=== PATIENT | female | born 1995 | race Caucasian/White ===

== ENCOUNTER 2016-07-25 19:15 | Inpatient (IN) | payer OTHER ==
[2016-07-25] MEDS ORDERED: BUTORPHANOL TARTRATE 1 MG/ML VIAL IVPUSH PRN (20:29)
[2016-07-25] MEDS ORDERED: OXYTOCIN 15 UNITS/ LR 250 ML 250 ML IVPB SCH (20:30)
[2016-07-25] MEDS ORDERED: ELECTROLYTE-148 SOLN 1,000 ML IV SCH (20:30)
--- NOTE | 2016-07-25 20:34 | HP ---
Past Medical History - Admission Chief Complaint: in labor History of Present Illness: 20 yo , @ 39 weeks gestation, admitted for augmentation of labor. She denies any vaginal bleeding nor ROM. History Source: Patient Limitations to Obtaining History: No Limitations - Past Medical History ...: 1 ...Para: 0 - Past Surgical History Past Surgical History: Yes: None Hx Myomectomy: No Hx Transabdominal Cerclage: No - Smoking History Smoking history: Never smoked - Alcohol/Substance Use Hx Alcohol Use: No History of Substance Use: reports: None - Social History Usual Living Arrangement: Yes: With Significant Other History of Recent Travel: No Home Medications - Allergies Allergies/Adverse Reactions: Allergies Allergy/AdvReac Type Severity Reaction Status Date / Time PEANUTS Allergy Uncoded 03/17/15 19:12 - Home Medications Home Medications: Ambulatory Orders Ferrous Sulfate [Feosol] 325 mg PO AM 06/08/16 Vitamins (Sjr) - 1 tab PO DAILY 06/08/16 Family Disease History - Family Disease History Family History: Unremarkable Review of Systems - Review of Systems Constitutional: reports: No Symptoms Eyes: reports: No Symptoms HENT: reports: No Symptoms Neck: reports: No Symptoms Cardiovascular: reports: No Symptoms Respiratory: reports: No Symptoms Gastrointestinal: reports: No Symptoms Genitourinary: reports: No Symptoms Breasts: reports: No Symptoms Reported Musculoskeletal: reports: No Symptoms Integumentary: reports: No Symptoms Neurological: reports: No Symptoms Endocrine: reports: No Symptoms Hematology/Lymphatic: reports: No Symptoms Psychiatric: reports: No Symptoms Pain Intensity: 3 Physical Exam - Maternity Constitutional: Yes: Well Nourished Eyes: Yes: Conjunctiva Clear HENT: Yes: Atraumatic Neck: Yes: Supple, Trachea Midline Cardiovascular: Yes: Regular Rate and Rhythm Lungs: Clear to auscultation - Abdominal Exam/OB Number of Fetuses: Single Presentation: Vertex Contractions: Yes Regularity: Regular Intensity: Mild - Vaginal Exam/OB Vaginal Bleediing: No Dilatation (cm): 4 Effacement (%): 70 Amniotic Membrane Status: Intact Station: -2 - Physical Exam Integumentary: Yes: WNL ...Motor Strength: WNL Psychiatric: Yes: Alert, Oriented Assessment/Plan IUP @ term Admit for Pitocin augmentation Analgesia PRN Anticipate
[2016-07-25 21:13] LABS: BASOPHIL 0.3 % (0-2.0); EOSINOPHIL 0.2 % (0-4.5); MCHC 33.2 g/dl (32.0-36.0); MEAN CELL VOLUME 78.2 fl (80-96); MEAN PLT VOLUME 8.8 fl (7.5-11.1); NEUTROPHILS 80.5 % (42.8-82.8); PLATELET COUNT 243 K/MM3 (134-434); RDW 16.4 % (11.6-15.6); WHITE BLOOD COUNT 10.1 K/mm3 (4.0-10.0)
[2016-07-25 21:30] LABS: INR 0.96 (0.82-1.09); PROTHROMBIN TIME (PATIENT) 10.5 SEC (9.98-11.88)
[2016-07-25 21:32] LABS: CALCIUM 8.9 mg/dL (8.5-10.1); CREATININE 0.6 mg/dL (0.55-1.02)
[2016-07-25 21:33] LABS: ACTIVATED PTT 25.8 SECONDS (26.9-34.4)
[2016-07-26] MEDS ORDERED: FENTANYL/BUPIVACAINE/NS/PF - PCEA - 50 ML DISP.SYRIN EP SCH (03:30)
[2016-07-26] MEDS: D5W-LR W/ 20 UNITS OXYTOCIN 1,000 ML IV SCH ×2 (07:08→13:15)
[2016-07-26] MEDS ORDERED: BENZOCAINE 28 GM HEMORRHOIDAL OINTMENT TP PRN (08:47)
[2016-07-26] MEDS ORDERED: WITCH HAZEL 50% (TUCKS) 40 PAD/JAR PAD TP PRN (08:47)
[2016-07-26] MEDS ORDERED: METHYLERGONOVINE MALEATE 0.2 MG/1 ML AMP IM PRN (08:47)
[2016-07-26] MEDS ORDERED: BISACODYL 10 MG SUPP.RECT RC PRN (08:47)
[2016-07-26] MEDS ORDERED: BENZOCAINE 20% 57 GM BOTTLE TP PRN (08:47)
--- NOTE | 2016-07-26 08:51 | PN ---
Delivery - Delivery Vaginal Delivery: Spontaneous Type of Anesthesia: Epidural Episiotomy/Laceration: Midline EBL (cc): 350 Delivery, Single - Stages of Labor Date 1st Stage Initiatied: 07/25/16 Time 1st Stage Initiated: 17:00 Date 2nd Stage Initiated: 07/26/16 Time 2nd Stage Initiated: 05:30 Date of Delivery: 07/26/16 Time of Delivery: 07:06 Time Placenta Delivered: 07:08 - Condition of Date Pitter/Etl Data Architect Present: No Gender: Male Weight: 7 lb 2 oz Total Hours ROM (Hrs/Mins): 10 HOURS 8 MINUTES - 1 Minute Total Score: 8 5 Minutes Total Score: 9 Remarks - Remarks Remarks: Normal spontaneous vaginal delivery of a live infant boy over midline episiotomy. Nose / Oropharynx suctioned @ perineum. Cord clamped and cut. Placenta expelled spontaneously intact. Episiotomy repaired with 2.Chromic.
--- NOTE | 2016-07-26 08:54 | DS ---
Physical Exam-COW PUNCHER Vital Signs: Vital Signs Temperature 98.4 F 07/26/16 02:00 Pulse Rate 85 07/26/16 02:00 Respiratory Rate 20 07/26/16 02:00 Blood Pressure 137/85 07/26/16 02:00 O2 Sat by Pulse Oximetry (%) Constitutional: Yes: Well Nourished Eyes: Yes: Conjunctiva Clear HENT: Yes: Atraumatic Neck: Yes: Supple Cardiovascular: Yes: Regular Rate and Rhythm Respiratory: Yes: Regular Gastrointestinal: Yes: Normal Bowel Sounds External Genitalia: Yes: Normal Vaginal Exam: Yes: Bleeding Cervix: Yes: Normal Uterus: Yes: Normal ....Post : Yes: Uterus firm, Moderate lochia rubra Breast(s): Yes: WNL Wound/Incision: Yes: Well Approximated Neurological: Yes: Alert, Oriented ...Motor Strength: WNL Psychiatric: Yes: Alert, Oriented Labs: CBC, BMP 07/25/16 20:12 07/25/16 20:30 Delivery - Delivery Vaginal Delivery: Spontaneous Type of Anesthesia: Epidural Episiotomy/Laceration: Midline EBL (cc): 350 Delivery, Single - Stages of Labor Date 1st Stage Initiatied: 07/25/16 Time 1st Stage Initiated: 17:00 Date 2nd Stage Initiated: 07/26/16 Time 2nd Stage Initiated: 05:30 Date of Delivery: 07/26/16 Time of Delivery: 07:06 Time Placenta Delivered: 07:08 - Condition of Infant Take Off Man/Whale Fisherman Present: No Infant Gender: Male Weight: 7 lb 2 oz Total Hours ROM (Hrs/Mins): 10 HOURS 8 MINUTES - 1 Minute Total Score: 8 5 Minutes Total Score: 9 Discharge Summary Reason For Visit: LABOR Labor Pain Procedures: Principal: Spontaneous vaginal delivery Hospital Course: Routine care Condition: Good - Instructions Diet, Activity, Other Instructions: Regular diet No douching, no sexual intercourse x 6 weeks F/U with MD in 6 weeks Disposition: HOME - Home Medications Comprehensive Discharge Medication List: Ambulatory Orders Ferrous Sulfate [Feosol] 325 mg PO AM 06/08/16 Vitamins (Sjr) - 1 tab PO DAILY 06/08/16
[2016-07-26] MEDS: ACETAMINOPHEN 325 MG TABLET (FP) PO PRN ×3 (09:05→21:53)
[2016-07-26] MEDS: IBUPROFEN 600 MG TABLET (FP) PO PRN ×3 (09:05→21:54)
[2016-07-26 10:04] VITALS: BMI 30.2
[2016-07-26] MEDS ORDERED: TUBERCULIN PPD 5 TU/0.1ML SYRINGE (IN PATIENT USE ONLY) ID ONE (11:30)
[2016-07-26] MEDS: PRENATAL VITAMINS W/ FOLIC ACID TABLET (FP) PO SCH (11:43)
[2016-07-26] MEDS: FERROUS SO4 325 MG TABLET (FP) PO SCH ×2 (11:50→16:43)
[2016-07-27] MEDS: ACETAMINOPHEN 325 MG TABLET (FP) PO PRN ×3 (03:38→21:32)
[2016-07-27] MEDS: IBUPROFEN 600 MG TABLET (FP) PO PRN ×3 (03:39→21:32)
[2016-07-27 08:31] LABS: BASOPHIL 0.3 % (0-2.0); EOSINOPHIL 0.3 % (0-4.5); MCH 26.1 pg (25.7-33.7); MCHC 33.1 g/dl (32.0-36.0); MEAN CELL VOLUME 78.9 fl (80-96); MEAN PLT VOLUME 8.5 fl (7.5-11.1); NEUTROPHILS 70.7 % (42.8-82.8); PLATELET COUNT 257 K/MM3 (134-434); RDW 16.7 % (11.6-15.6); WHITE BLOOD COUNT 15.5 K/mm3 (4.0-10.0)
--- NOTE | 2016-07-27 08:35 | PN ---
Post Progress Note - Subjective Subjective: Pt seen/evaluated and doing well. Pain controlled, tolerating diet. Ambulating , voiding, passing flatus. VB moderate but decreasing. Denies Cp/SOB/F/C/CORTES. No other complaints. Type of Delivery: Vital Signs: Vital Signs Temperature 98.8 F 07/27/16 06:00 Pulse Rate 72 07/27/16 06:00 Respiratory Rate 20 07/27/16 06:00 Blood Pressure 135/76 07/27/16 06:00 O2 Sat by Pulse Oximetry (%) 100 07/26/16 08:05 Uterus: Yes: Fundus Firm Abdomen/GI: Yes: Abdomen soft, Passing flatus, Tolerating PO. No: Abdominal Distention, Tender Lochia: Yes: Rubra Lochia, amount: Moderate Extremities: Yes: Calves non-tender Perineum: Yes: Intact Activity: Ambulating - Labs Labs: CBC WBC 15.5 K/mm3 (4.0-10.0) H D 07/27/16 08:00 RBC 3.75 M/mm3 (3.60-5.2) 07/27/16 08:00 Hgb 9.8 GM/dL (10.7-15.3) L 07/27/16 08:00 Hct 29.6 % (32.4-45.2) L 07/27/16 08:00 MCV 78.9 fl (80-96) L 07/27/16 08:00 MCHC 33.1 g/dl (32.0-36.0) 07/27/16 08:00 RDW 16.7 % (11.6-15.6) H 07/27/16 08:00 Plt Count 257 K/MM3 (134-434) 07/27/16 08:00 MPV 8.5 fl (7.5-11.1) 07/27/16 08:00 Neutrophils % 70.7 % (42.8-82.8) 07/27/16 08:00 Lymphocytes % 23.4 % (8-40) D 07/27/16 08:00 Monocytes % 5.3 % (3.8-10.2) 07/27/16 08:00 Eosinophils % 0.3 % (0-4.5) 07/27/16 08:00 Basophils % 0.3 % (0-2.0) 07/27/16 08:00 Problem List - Problems (1) Vaginal delivery Code(s): O80 - ENCOUNTER FOR FULL-TERM UNCOMPLICATED DELIVERY (2) Anemia Code(s): D64.9 - ANEMIA, UNSPECIFIED Assessment/Plan 20 y/o PPD#1 s/p normal - AFVSS - Hgb 9.7 post delivery, stable, continue vitamins - regular diet, PO pain meds, ambulation - routine care
[2016-07-27] MEDS: PRENATAL VITAMINS W/ FOLIC ACID TABLET (FP) PO SCH (10:26)
[2016-07-27] MEDS: FERROUS SO4 325 MG TABLET (FP) PO SCH ×3 (10:26→17:16)
[2016-07-27] MEDS ORDERED: DIPHTH,PERTUSS(ACELL),TET 0.5 ML DISP.SYRIN IM ONE (15:00)
[2016-07-27] MEDS ORDERED: SENNOSIDES/DOCUSATE COMBO (SENNA PLUS) TABLET (UD) PO PRN (22:00)
[2016-07-28] MEDS: ACETAMINOPHEN 325 MG TABLET (FP) PO PRN (06:09)
[2016-07-28] MEDS: IBUPROFEN 600 MG TABLET (FP) PO PRN (06:10)
[2016-07-28] MEDS: FERROUS SO4 325 MG TABLET (FP) PO SCH (08:21)
[2016-07-28 10:22] VITALS: BP 126/85; PULSE 81; TEMP 98.1
[2016-07-28] MEDS: PRENATAL VITAMINS W/ FOLIC ACID TABLET (FP) PO SCH (10:43)
== END 2016-07-28 11:50 | disposition home or self-care (01) | DRG 560 ==
LOC: JDEL 19:15 → JLDR 19:35 → J3W 07-26 14:28
PROVIDERS: ADMIT Obstetrics & Gynecology; ATTEND Obstetrics & Gynecology
PROC: 10E0XZZ Delivery of Products of Conception, External Approach (ICD-10-PCS; principal; 2016-07-26)
PROC: 0W8NXZZ Division of Female Perineum, External Approach (ICD-10-PCS; 2016-07-26)
DX: O80 Encounter for full-term uncomplicated delivery (principal); Z3A.39 39 weeks gestation of pregnancy; Z37.0 Single live birth
CPT/HCPCS: 36415; 59409; 80048; 85025; 85610; 85730; 86593; 86850; 86900; 86901; 90715